=== PATIENT | male | born 1990 | race Caucasian/White ===

== ENCOUNTER 2018-12-11 16:19 | Emergency (ER) | payer BC ==
[2018-12-11] MEDS ORDERED: HYDROmorphone 1 MG/ML Syringe IVPUSH ONE ×2 (17:02→17:53)
[2018-12-11] MEDS ORDERED: Diphtheria,Pertussis(Acell),Tetanus Vaccine 0.5 ML SDV IM ONE (17:15)
--- NOTE | 2018-12-11 17:33 | EDM.PDOC ---
ED HPI GENERAL MEDICAL PROBLEM - General Chief Complaint: Upper Extremity Injury/Pain Stated Complaint: CUT FINGER Time Seen by Provider: 12/11/18 17:33 Source of Information: Reports: Patient History Limitations: Reports: No Limitations - History of Present Illness INITIAL COMMENTS - FREE TEXT/NARRATIVE: pt arrived with a history of catching his rt small finger in a hinge on the pontoon. He degloved the entire finger. He did imediately pull th skin over the finger. The finger appears dusky. He is numb at the tip of the finger. Onset: Today Duration: Hour(s): Location: Reports: Upper Extremity, Right, Other Associated Symptoms: Reports: No Other Symptoms - Related Data Allergies Allergy/AdvReac Type Severity Reaction Status Date / Time No Known Allergies Allergy Verified 12/11/18 16:36 Home Meds: Home Meds NK [No Known Home Meds] 12/11/18 [History] Past Medical History Musculoskeletal History: Reports: Fracture Other Musculoskeletal History: plates and skin william Review of Systems - Review of Systems Review Of Systems: See Below Constitutional: Reports: No Symptoms Eyes: Reports: No Symptoms Ears: Reports: No Symptoms Nose: Reports: No Symptoms Mouth/Throat: Reports: No Symptoms Respiratory: Reports: No Symptoms Cardiovascular: Reports: No Symptoms GI/Abdominal: Reports: No Symptoms Genitourinary: Reports: No Symptoms Musculoskeletal: Reports: No Symptoms, Other (pt has a finger injury to the rt small finger) Skin: Reports: No Symptoms ED EXAM, GENERAL - Physical Exam Exam: See Below Free Text/Narrative:: pt caught his rt small finger in a hinge on the pontoon. It is painful and he degloved the mojority of the small finger> He astill is able to move the finger. Exam Limited By: No Limitations General Appearance: Alert, Moderate Distress Extremities: Other ( smallfinger on the rt is degloved. The pat imediately pulled the skin over the finger. An xray of the finger shows undisplaced fracture at the distal pp joint. ) Neurological: Alert, Oriented, Normal Cognition Psychiatric: Normal Affect Course - Vital Signs Last Recorded V/S: Last Vital Signs Temp 36.0 C 12/11/18 16:41 Pulse 79 12/11/18 16:41 Resp 14 12/11/18 16:41 BP 125/72 12/11/18 16:41 Pulse Ox 98 12/11/18 16:41 - Orders/Labs/Meds Meds: Medications Discontinued Medications Generic Name Dose Route Start Last Admin Trade Name Aleyxs PRN Reason Stop Dose Admin Cefazolin Sodium Confirm 12/11/18 18:02 12/11/18 18:14 Ancef Administered 12/11/18 18:03 1 gm Dose Administration 1 gm .ROUTE .STK-MED ONE Diphtheria/Tetanus/Acell Pertussis 0.5 ml 12/11/18 17:15 12/11/18 18:15 Adacel IM 12/11/18 17:16 0.5 ml .ONCE ONE Administration Hydromorphone HCl 1 mg 12/11/18 17:02 12/11/18 17:11 Dilaudid IVPUSH 12/11/18 17:03 1 mg ONETIME ONE Administration Hydromorphone HCl 1 mg 12/11/18 17:53 12/11/18 18:13 Dilaudid IVPUSH 12/11/18 17:54 1 mg ONETIME ONE Administration Cefazolin Sodium/Dextrose 1 gm 50 mls @ 100 mls/hr 12/11/18 17:49 12/11/18 18 :19 / Premix IV 12/11/18 18:18 100 mls/hr ONETIME ONE Administration Sodium Chloride Confirm 12/11/18 18:02 12/11/18 18:14 Normal Saline Administered 12/11/18 18:03 50 mls/hr Dose Administration 50 mls @ as directed .ROUTE .STK-MED ONE - Re-Assessments/Exams Free Text/Narrative Re-Assessment/Exam: 12/11/18 17:51 Dr Mosquera from [place] was contacted to care for the finger. She felt this would be better cared for by the hand people at [facility]. There is a risk of loosing the finger. He will be given ancef prior to leaving. Departure - Departure Time of Disposition: 18:35 Disposition: DC/Tfer to Acute Hospital 02 Condition: Fair Clinical Impression: Degloving injury of finger, Closed fracture dislocation of proximal interphalangeal (PIP) joint of finger - Discharge Information Referrals: PCP,None [Primary Care Provider] - Forms: ED Department Discharge Care Plan Goals: Go to the Er at [facility]-- The case was discussed with Dr Ward.pt has been given a gram of ancef, dilaudid 1 gm, and a tetanus booster.
--- NOTE | 2018-12-11 17:41 | CRLCR ---
TECHNIQUE: Three views of the right 5th finger. INDICATION: Finger injury. FINDINGS: Acute intra-articular fracture of the head of the 5th middle phalanx. A fracture fragment arising from the radial aspect of the phalanx is displaced 2-3 mm radially and dorsally. There is an overlying laceration. Two tiny radiodensities in the soft tissues adjacent to the shaft of the middle phalanx could be bone fragments or foreign bodies. Dictated by Levi Valenzuela MD @ 12/11/2018 5:40:22 PM Dictated by: Levi Valenzuela MD @ 12/11/2018 17:40:28 (Electronically Signed)
[2018-12-11] MEDS: Sodium Chloride 0.9% 50 ML ONE (18:14)
[2018-12-11] MEDS: ceFAZolin 1 GM Vial ONE (18:14)
[2018-12-11] MEDS: ceFAZolin 1 GM in Premix Bag 1 BAG IV ONE ×2 (18:16→18:19)
[2018-12-14] MEDS: Sodium Chloride 0.9% 50 ML ONE (11:40)
[2018-12-14] MEDS: ceFAZolin 1 GM Vial ONE (11:41)
== END 2018-12-11 18:33 ==
LOC: JP.ED 16:19
DX: S62.626A Displaced fracture of middle phalanx of right little finger, initial encounter for closed fracture (principal); Z23 Encounter for immunization; W23.1XXA Caught, crushed, jammed, or pinched between stationary objects, initial encounter
CPT/HCPCS: 73140; 90471; 90715; 96365; 96375; 96376; 99284; J0690; J1170; J7050